=== PATIENT | male | born 1975 | race Caucasian/White ===

== ENCOUNTER 2019-09-15 07:51 | Outpatient (CLI) | payer OTHER, SELFPAY ==
[2019-09-15] MEDS: diphenhydrAMINE 50 mg/mL SDV 1mL 25 MG IVP (08:45)
[2019-09-15] MEDS: acetaminophen 500 mg Tablet 1000 MG PO (08:45)
== END 2019-09-15 07:52 | disposition home or self-care (01) ==
LOC: NSACUTE 07:52
PROVIDERS: Family Provider Family Medicine; PCP Family Medicine; Visit Provider Specialist
DX: G35 Multiple sclerosis (principal)
CPT/HCPCS: 96365; 96374; 96375; 99213; J1200; J2350; J2930; J7040

== ENCOUNTER 2020-02-27 10:23 | Outpatient (CLI) | payer OTHER, SELFPAY ==
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
== END 2020-02-27 10:24 | disposition home or self-care (01) ==
LOC: RAD 10:27
PROVIDERS: PCP Family Medicine; Visit Provider Nurse Practitioner Family
DX: M79.661 Pain in right lower leg (principal); V19.9XXA Pedal cyclist (driver) (passenger) injured in unspecified traffic accident, initial encounter
CPT/HCPCS: 73590

== ENCOUNTER 2020-04-05 08:05 | Outpatient (CLI) | payer OTHER, SELFPAY ==
[2020-04-05] MEDS: diphenhydrAMINE 50 mg/mL SDV 1mL 25 MG IVP (08:00)
[2020-04-05] MEDS: acetaminophen 500 mg Tablet 1000 MG PO (08:50)
== END 2020-04-05 08:06 | disposition home or self-care (01) ==
LOC: NSACUTE 08:06
PROVIDERS: PCP Family Medicine; Visit Provider Specialist
DX: G35 Multiple sclerosis (principal)
CPT/HCPCS: 96365; 96366; 96375; 99213; J1200; J2350; J2930; J7040

== ENCOUNTER 2020-09-27 08:10 | Outpatient (CLI) | payer OTHER, SELFPAY ==
[2020-09-27] MEDS: acetaminophen 500 mg Tablet 1000 MG PO (08:50)
[2020-09-27] MEDS: diphenhydrAMINE 50 mg/mL SDV 1mL 12.5 MG IVP (08:59)
--- NOTE | 2020-09-27 09:51 | PC.NURSE ---
Medication Lot Numbers: Solumedrol [id number] 02/10 Benadryl [id number] 09/09 Ocrevus [id number] 05/10
== END 2020-09-27 08:11 | disposition home or self-care (01) ==
LOC: NSACUTE 08:12
PROVIDERS: PCP Family Medicine; Visit Provider Specialist
DX: G35 Multiple sclerosis (principal)
CPT/HCPCS: 96365; 96366; 96375; 99213; J1200; J2350; J2930; J7040

== ENCOUNTER 2021-03-16 09:00 | Outpatient (CLI) | payer OTHER, SELFPAY | END 2021-03-16 09:01 | disposition home or self-care (01) | LOC: NSACUTE 03-23 10:24 | PROVIDERS: PCP Family Medicine; Visit Provider Specialist | DX: G35 Multiple sclerosis (principal); R42 Dizziness and giddiness; E11.9 Type 2 diabetes mellitus without complications; Z79.84 Long term (current) use of oral hypoglycemic drugs; E66.3 Overweight; Z68.34 Body mass index [BMI] 34.0-34.9, adult | CPT/HCPCS: 99214 ==

== ENCOUNTER 2021-03-16 09:24 | Outpatient (CLI) | payer OTHER, SELFPAY ==
[2021-03-16 09:36] VITALS: BP 110/73; PULSE 65; RESP 18; TEMP 36.4; O2SAT 98
[2021-03-16 10:17] LABS: Basophils # 0.1 10^3/uL (0.0-0.1); Basophils % 0.7 %; Eosinophils # 0.2 10^3/uL (0.0-0.8); Eosinophils % 2.9 %; Hematocrit 48.8 % (42.0-52.0); Hemoglobin 16.8 g/dL (11.7-16.6); Lymphocytes # 1.4 10^3/uL (0.8-4.8); Lymphocytes % 19.7 %; Mean Corpuscular HGB Conc 34.4 g/dL (30.0-36.0); Mean Corpuscular Hemoglobin 30.1 pg (28.0-34.0); Mean Corpuscular Volume 87.3 fl (80-94); Mean Platelet Volume 10.3 fL (7.4-10.4); Monocytes # 0.7 10^3/uL (0.2-0.9); Monocytes % 9.8 %; Neutrophils # 4.89 10^3/uL (1.8-7.7); Neutrophils % 66.8 %; Nucleated Red Blood Cells % 0 %; Platelet Count 219 10^3/cmm (130-400); Red Blood Count 5.59 10^6/uL (4.1-5.3); Red Cell Distribution Width 12.4 % (12.1-15.1); White Blood Count 7.3 10^3/uL (4.0-10.0)
[2021-03-16] MEDS: sodium chloride 0.9% 250 ML 75 ML IV (10:25)
[2021-03-16] MEDS: acetaminophen 500 mg Tablet 1000 MG PO (10:26)
[2021-03-16] MEDS: diphenhydrAMINE 50 mg/mL SDV 1mL 25 MG IV (10:27)
[2021-03-16 10:36] LABS: Estmated Average Glucose 180; Hemoglobin A1C 7.9 % (4.0-6.0)
[2021-03-16 10:44] LABS: Alanine Aminotransferase 108 U/L (0-41); Albumin Level 4.3 g/dL (3.5-5.2); Alkaline Phosphatase 70 IU/L (40-130); Anion Gap 15.9 (5-19); Aspartate Amino Transferase 59 U/L (0-40); Blood Urea Nitrogen 18 mg/dL (6-20); Calcium 9.8 mg/dL (8.5-10.5); Carbon Dioxide 28 mmol/L (22-29); Chloride 97 mmol/L (98-107); Globulin 2.7 g/dL (1.3-4.6); Glucose 191 mg/dL (65-115); Osmolality Calculated 291 mOsm/kg (285-295); Potassium 3.9 mmol/L (3.5-5.1); Sodium 137 mmol/L (136-145); Thyroid Stimulating Hormone 1.69 uIU/mL (0.27-4.20); Total Bilirubin 0.7 mg/dL (0.15-1.2)
[2021-03-16 11:04] VITALS: BP 126/72; PULSE 78; RESP 18; TEMP 36.6; O2SAT 95
[2021-03-16 12:00] VITALS: BP 120/73; PULSE 80; RESP 18; TEMP 36.5; O2SAT 94
[2021-03-16 13:05] VITALS: BP 132/74; PULSE 85; RESP 18; TEMP 36.6; O2SAT 93
== END 2021-03-16 09:25 | disposition home or self-care (01) ==
LOC: ONCMED 09:25
PROVIDERS: PCP Family Medicine; Visit Provider Specialist
DX: G35 Multiple sclerosis (principal); Z79.899 Other long term (current) drug therapy
CPT/HCPCS: 80053; 83036; 84443; 85025; 96365; 96366; 96375; J1200; J2350; J2930; J7040; J7050

== ENCOUNTER 2021-05-09 12:57 | Outpatient (CLI) | payer OTHER, SELFPAY ==
--- NOTE | 2021-05-09 13:30 | USCV_ITS ---
Emeka Costello Age: 45 Gender: M : 1975 Exam Date: 05/09/2021 13:32 Ordering Phys: Stephania Chin MD Technologist: Lanette Monique Exam Location: [facility] Indication: TIA Risk Factors: Previous Vascular Surgery: Right Brachial BP: / Left Brachial BP: / Right Left Velocity (cm/s) Spectral Plaque Velocity (cm/s) Spectral Plaque Syst/Diast Broadening Syst/Diast Broadening 131.70/15.40 Prox CCA 143.80/ 26.00 99.20/ 19.80 Mid CCA 113.10/ 14.50 98.10/ 18.70 Distal CCA 76.90 / 16.20 92.60/ 13.20 Prox ICA 59.00 / 16.20 68.40/ 22.20 Mid ICA 63.20 / 17.10 64.10/ 23.10 Distal ICA 53.00 / 16.20 105.80 ECA 129.00 0.70 ICA/CCA 0.44 Antegrade Vertebral Antegrade 53.00/ 10.90 cm/s 45.30/ 13.70 cm/s Tri Subclavian Tri 132.8 163.2 0 0 CONCLUSIONS Right ICA stenosis <50%. Left ICA stenosis <50%. Normal antegrade Doppler flow noted in the right vertebral artery. Normal antegrade Doppler flow noted in the left vertebral artery. Salazar Cobb MD (Electronically Signed) Final Date: 09 May 2021 17:51 S
== END 2021-05-09 12:58 | disposition home or self-care (01) ==
PROVIDERS: PCP Family Medicine; Visit Provider Specialist
DX: E11.9 Type 2 diabetes mellitus without complications (principal)
CPT/HCPCS: 93880

== ENCOUNTER 2021-09-14 09:03 | Outpatient (CLI) | payer OTHER, SELFPAY ==
[2021-09-14 09:18] VITALS: BP 129/82; PULSE 67; RESP 18; TEMP 36.3; O2SAT 98
[2021-09-14] MEDS: sodium chloride 0.9% 250 ML 50 ML IV (09:41)
[2021-09-14] MEDS: diphenhydrAMINE 50 mg/mL SDV 1mL 25 MG IV (09:42)
[2021-09-14] MEDS: acetaminophen 500 mg Tablet 1000 MG PO (09:42)
[2021-09-14 10:05] VITALS: BP 125/79; PULSE 69; RESP 18; TEMP 36.5; O2SAT 97
[2021-09-14 10:21] VITALS: BP 130/86; PULSE 71; RESP 18; TEMP 36.5; O2SAT 97
[2021-09-14 10:53] VITALS: BP 124/81; PULSE 70; RESP 18; TEMP 36.5; O2SAT 97
[2021-09-14 12:18] VITALS: BP 115/76; PULSE 81; RESP 18; TEMP 36.3; O2SAT 96
== END 2021-09-14 09:04 | disposition home or self-care (01) ==
PROVIDERS: PCP Family Medicine; Referring Provider Specialist; Visit Provider Specialist
DX: G35 Multiple sclerosis (principal)
CPT/HCPCS: 96365; 96366; 96375; J1200; J2350; J2930; J7040; J7050

== ENCOUNTER 2022-03-22 09:37 | Outpatient (CLI) | payer OTHER, SELFPAY ==
[2022-03-22 09:52] VITALS: BP 119/80; PULSE 84; RESP 18; TEMP 36.5; O2SAT 96
[2022-03-22] MEDS: acetaminophen 500 mg Tablet 1000 MG PO (10:14)
[2022-03-22] MEDS: sodium chloride 0.9% 250 ML 50 ML IV (10:14)
[2022-03-22] MEDS: diphenhydrAMINE 50 mg/mL SDV 1mL 25 MG IVP (10:16)
[2022-03-22 10:59] VITALS: BP 114/78; PULSE 76; RESP 18; TEMP 36.6; O2SAT 96
[2022-03-22 11:27] VITALS: BP 115/73; PULSE 83; RESP 18; TEMP 36.4; O2SAT 96
[2022-03-22 12:53] VITALS: BP 129/74; PULSE 81; RESP 18; TEMP 36.5; O2SAT 96
== END 2022-03-22 09:38 | disposition home or self-care (01) ==
LOC: ONCMED 09:38
PROVIDERS: PCP Family Medicine; Visit Provider Specialist
DX: G35 Multiple sclerosis (principal)
CPT/HCPCS: 96365; 96366; 96375; A4222; J1200; J2350; J2930; J7040; J7050

== ENCOUNTER 2022-04-12 12:46 | Outpatient (CLI) | payer OTHER, SELFPAY ==
--- NOTE | 2022-04-12 13:00 | MR_ITS ---
WS: [id number] MRI HEAD WITHOUT CONTRAST TECHNIQUE: Sagittal T1, T2 axial, T2 axial FLAIR, axial and coronal T1 images, axial susceptibility w eighted imaging, axial diffusion weighted images, and coronal T2 images were obtained. CLINICAL INFORMATION: G35 - Multiple sclerosis COMPARISON: MRI 03/27/19 and 2017 FINDINGS: No evidence of restricted diffusion to suggest acute ischemia. Ventricular system and basal cisterns are patent. Mild patchy supratentorial white matter changes appear stable from previous. No evidence of progressed disease. Gadolinium not administered. Mild parenchymal volume loss. No significant T1 h ypointense lesion load. No hemosiderin on susceptibly weighted images. Normal posterior fossa. Normal vascular flow voids at the skull base. Paranasal sinuses are well aerated. Mastoid air cells are well aerated. No significan t atrophy of the corpus callosum. MR/MR head wo con* [id number] IMPRESSION: Gadolinium not administered. 1. Mild patchy supratentorial white matter changes compatible with history of demyelinating disease. No evidence of disease progression. 2. No significant T1 hypointense lesion load. Mild parenchymal volume loss. 3. No significant atrophy of the corpus callosum. 4. No other remarkable findings.
--- NOTE | 2022-04-12 13:45 | MR_ITS ---
WS: [id number] MRI CERVICAL SPINE NONCONTRAST TECHNIQUE: Sagittal T1, T2 and STIR imaging. Axial T2, gradient, and fiesta imaging. CLINICAL INFORMATION: G35 - Multiple sclerosis COMPARISON: None. FINDINGS: Straightening of the normal cervical lordosis. Cord signal is normal. No evidence of cord atrophy. Pr eviously described chronic demyelinating plaques better visualized on the prior examination. Tiny chr onic demyelinating plaque at RIGHT C3 appears unchanged C2-C3: Mild facet arthropathy. Spinal canal and foramen are patent. C3-C4: Mild annular bulging with osteophytic ridging. Mild bilateral bony foraminal narrowing LEFT gr eater than RIGHT. Moderate facet arthropathy. C4-C5: Mild disc bulging and osteophytic ridging. Moderate LEFT bony foraminal narrowing. Moderate fa cet arthropathy. C5-C6: Mild disc bulging with osteophytic ridging. Spinal canal is patent. Moderate facet arthropathy . Mild to moderate LEFT and mild RIGHT bony foraminal narrowing. C6-C7: Mild disc bulging with a tiny annular fissure. Moderate facet arthropathy. Mild LEFT and no si gnificant RIGHT foraminal narrowing. C7-T1: Normal. Visualized brain stem structures: Normal. Prevertebral soft tissues: Normal. MR/MR cervical spin wo con* [id number] IMPRESSION: 1. No evidence of progressed demyelinating disease. 2. Tiny chronic demyelinating plaque at RIGHT C3. 3. No significant cord atrophy. 4. Mild to moderate multilevel bony foraminal narrowing worse at LEFT C4-C5 an d LEFT C5-C6. 5. Mild to moderate facet arthropathy C3-C4 C4-C5 and C5-C6.
== END 2022-04-12 12:47 | disposition home or self-care (01) ==
PROVIDERS: PCP Family Medicine; Visit Provider Specialist
DX: G35 Multiple sclerosis (principal); M47.812 Spondylosis without myelopathy or radiculopathy, cervical region
CPT/HCPCS: 70551; 72141

== ENCOUNTER → 2022-06-27 17:03 | Outpatient (BNVA) | payer OTHER, SELFPAY | PROVIDERS: PCP Family Medicine; Visit Provider Family Medicine | DX: E11.65 Type 2 diabetes mellitus with hyperglycemia (principal); M72.2 Plantar fascial fibromatosis; F32.9 Major depressive disorder, single episode, unspecified; I10 Essential (primary) hypertension; F32.A Depression, unspecified; G35 Multiple sclerosis; J30.9 Allergic rhinitis, unspecified; Z23 Encounter for immunization | CPT/HCPCS: 80053; 80061; 83036; 84153; 84443; 85025 ==

== ENCOUNTER 2022-09-20 08:54 | Oncology outpatient (recurring) (ONCR) | payer OTHER, SELFPAY ==
[2022-09-20 09:15] VITALS: PULSE 80; RESP 18; TEMP 36.4
[2022-09-20] MEDS: acetaminophen 500 mg Tablet 1000 MG PO (09:18)
[2022-09-20] MEDS: sodium chloride 0.9% 250 ML 75 ML IV (09:19)
[2022-09-20] MEDS: ocrelizumab 600 MG in sodium chloride 0.9% 500 ML 100 MG IV (09:57)
[2022-09-20 10:00] VITALS: BP 122/80; PULSE 81; RESP 18; TEMP 36.4
[2022-09-20 10:15] VITALS: BP 116/77; PULSE 81; RESP 18; TEMP 36.3
[2022-09-20 10:35] VITALS: BP 119/82; PULSE 100; RESP 18; TEMP 36.5
[2022-09-20 10:50] VITALS: BP 125/73; PULSE 83; RESP 18; TEMP 36.4
[2022-09-20 12:10] VITALS: BP 126/70; PULSE 91; RESP 18; TEMP 36.7; O2SAT 98
== END 2022-09-20 23:59 | disposition home or self-care (01) ==
PROVIDERS: PCP Family Medicine; Visit Provider Specialist
DX: G35 Multiple sclerosis (principal); Z79.899 Other long term (current) drug therapy
CPT/HCPCS: 96365; 96366; 96375; J2350; J2930; J7040; J7050

== ENCOUNTER → 2023-02-13 16:20 | Outpatient (BNVA) | payer OTHER, SELFPAY | PROVIDERS: PCP Family Medicine; Visit Provider Family Medicine | DX: I10 Essential (primary) hypertension (principal); E11.65 Type 2 diabetes mellitus with hyperglycemia; J30.9 Allergic rhinitis, unspecified | CPT/HCPCS: 80053; 83036; 85025 ==

== ENCOUNTER 2023-03-08 06:33 | Outpatient (CLI) | payer OTHER, SELFPAY ==
--- NOTE | 2023-03-08 06:30 | US_ITS ---
WS: [id number] RIGHT UPPER QUADRANT ULTRASOUND HISTORY: Elevated LFT's COMPARISON: 07/25/2017 Liver: 19.6 cm in length. Enlarged dense liver. Liver measures just slightly greater in size as brigitte red to the study of 07/25/2017. The entire liver is not well visualized. No bile duct dilatation. No ma ss although masses would be difficult to completely exclude. Portal Vein: Normal hepatopetal flow with monophasic waveform. Gallbladder: Normally distended gallbladder with no stones or wall thickening. CBD: 0.3 cm Pancreas: Obscured. Right kidney: 12.9 cm in length. Normal size and echogenicity. No hydronephrosis or mass. Aorta and IVC: Unremarkable abdominal aorta and IVC. No ascites. IMPRESSION: 1. Technically difficult RIGHT upper quadrant ultrasound due to body habitus. 2. Moderate hepatomegaly with severe hepatic steatosis. The entire liver is not well visualized due t o steatosis. 3. Nonvisualized pancreas. 4. Negative gallbladder.
== END 2023-03-08 06:34 | disposition home or self-care (01) ==
LOC: RAD 06:33
PROVIDERS: PCP Family Medicine; Visit Provider Family Medicine
DX: K76.0 Fatty (change of) liver, not elsewhere classified (principal); R16.0 Hepatomegaly, not elsewhere classified; R79.89 Other specified abnormal findings of blood chemistry
CPT/HCPCS: 76705

== ENCOUNTER 2023-03-19 09:59 | Oncology outpatient (recurring) (ONCR) | payer OTHER, SELFPAY ==
[2023-03-19 10:27] VITALS: BP 130/83; PULSE 75; TEMP 36.5; O2SAT 99
[2023-03-19] MEDS: sodium chloride 0.9% 250 ML 75 ML IV (10:51)
[2023-03-19] MEDS: methylPREDNISolone sod succ 125 mg SDV IVP (10:51)
[2023-03-19] MEDS: diphenhydrAMINE 50 mg/mL SDV 1mL 25 MG IVP (10:51)
[2023-03-19] MEDS: acetaminophen 500 mg Tablet 1000 MG PO (10:52)
[2023-03-19] MEDS: ocrelizumab 600 MG in sodium chloride 0.9% 500 ML 100 MG IV (11:29)
[2023-03-19 11:30] VITALS: BP 121/77; PULSE 82; TEMP 36.5; O2SAT 97
[2023-03-19 11:45] VITALS: BP 120/78; PULSE 79; TEMP 36.5; O2SAT 96
[2023-03-19 12:05] VITALS: BP 118/72; PULSE 73; TEMP 36.6; O2SAT 96
[2023-03-19 12:35] VITALS: BP 106/67; PULSE 87; TEMP 36.4; O2SAT 94
[2023-03-19 16:08] VITALS: BP 114/77; PULSE 78; RESP 18; TEMP 36.3; O2SAT 99
== END 2023-03-20 23:59 | disposition home or self-care (01) ==
LOC: ONCMED 10:00
PROVIDERS: PCP Family Medicine; Visit Provider Specialist
DX: G35 Multiple sclerosis (principal)
CPT/HCPCS: 96375; 96413; 96415; J1200; J2350; J2930; J7040; J7050

== ENCOUNTER → 2023-04-06 08:48 | Outpatient (BNVA) | payer OTHER, SELFPAY | PROVIDERS: PCP Family Medicine; Visit Provider Specialist | DX: G35 Multiple sclerosis (principal) | CPT/HCPCS: 99213 ==

== ENCOUNTER → 2023-08-06 16:16 | Outpatient (BNVA) | payer OTHER, SELFPAY | PROVIDERS: PCP Family Medicine; Visit Provider Family Medicine | DX: E11.65 Type 2 diabetes mellitus with hyperglycemia (principal); F32.9 Major depressive disorder, single episode, unspecified; G35 Multiple sclerosis; I10 Essential (primary) hypertension; J30.9 Allergic rhinitis, unspecified; E11.9 Type 2 diabetes mellitus without complications; J44.9 Chronic obstructive pulmonary disease, unspecified | CPT/HCPCS: 80053; 80061; 82607; 83036; 84443; 85025 ==

== ENCOUNTER → 2023-08-13 13:05 | Outpatient (BNVA) | payer OTHER, SELFPAY | PROVIDERS: PCP Family Medicine; Visit Provider Podiatrist Foot & Ankle Surgery | DX: E11.69 Type 2 diabetes mellitus with other specified complication; L84 Corns and callosities; Z79.84 Long term (current) use of oral hypoglycemic drugs | CPT/HCPCS: 99213 ==

== ENCOUNTER 2023-10-17 08:01 | Oncology outpatient (recurring) (ONCR) | payer OTHER, SELFPAY ==
[2023-10-17 08:21] VITALS: BP 122/81; PULSE 79; RESP 16; TEMP 36.6; O2SAT 97
[2023-10-17] MEDS: sodium chloride 0.9% 250 ML 75 ML IV (08:55)
[2023-10-17] MEDS: acetaminophen 500 mg Tablet 1000 MG PO (08:57)
[2023-10-17] MEDS: diphenhydrAMINE 50 mg/mL SDV 1mL 25 MG IVP (08:59)
[2023-10-17] MEDS: methylPREDNISolone sod succ 125 mg/2 mL INJ IVP (09:04)
[2023-10-17] MEDS: ocrelizumab 600 MG in sodium chloride 0.9% 500 ML 100 MG IV (09:12)
[2023-10-17 09:15] VITALS: BP 124/77; PULSE 75; RESP 18; TEMP 36.2; O2SAT 96
[2023-10-17 09:30] VITALS: BP 129/82; PULSE 74; RESP 18; TEMP 36.3; O2SAT 96
[2023-10-17 10:00] VITALS: BP 125/81; PULSE 72; RESP 17; TEMP 36; O2SAT 96
[2023-10-17 11:40] VITALS: BP 117/72; BP 121/78; PULSE 74; PULSE 76; RESP 18; TEMP 35.9; TEMP 36.6; O2SAT 96; O2SAT 98
== END 2023-10-19 23:59 | disposition home or self-care (01) ==
LOC: ONCMED 08:02
PROVIDERS: PCP Family Medicine; Visit Provider Specialist
DX: G35 Multiple sclerosis (principal)
CPT/HCPCS: 96375; 96413; 96415; J1200; J2350; J2919; J7040; J7050

== ENCOUNTER 2024-04-15 09:42 | Oncology outpatient (recurring) (ONCR) | payer OTHER, SELFPAY ==
[2024-04-15] VITALS (7 sets, daily range): BP systolic 113–127; BP diastolic 69–81; PULSE 76–87; RESP 16; TEMP 36.3–37.1; O2SAT 94–98
[2024-04-15] MEDS: acetaminophen 500 mg Tablet 1000 MG PO (10:17)
[2024-04-15] MEDS: sodium chloride 0.9% 250 ML 75 ML IV (10:20)
[2024-04-15] MEDS: diphenhydrAMINE 50 mg/mL SDV 1mL 25 MG IVP (10:23)
[2024-04-15] MEDS: methylPREDNISolone sod succ 125 mg/2 mL INJ IVP (10:28)
[2024-04-15] MEDS: ocrelizumab 600 MG in sodium chloride 0.9% 500 ML 40 MG IV (11:30)
== END 2024-04-19 23:59 | disposition home or self-care (01) ==
PROVIDERS: PCP Family Medicine; Visit Provider Specialist
DX: Z79.899 Other long term (current) drug therapy (principal); G35 Multiple sclerosis
CPT/HCPCS: 96375; 96413; 96415; A4222; J1200; J2350; J2919; J7040; J7050

== ENCOUNTER → 2024-09-18 08:15 | Outpatient (BNVA) | payer OTHER, SELFPAY | PROVIDERS: PCP Family Medicine | DX: E11.9 Type 2 diabetes mellitus without complications (principal) | CPT/HCPCS: 80053; 80061; 81003; 83036; 85025 ==

== ENCOUNTER → 2024-09-19 15:44 | Outpatient (BNVA) | payer OTHER, SELFPAY | PROVIDERS: PCP Family Medicine; Visit Provider Family Medicine | DX: R31.29 Other microscopic hematuria (principal); E11.9 Type 2 diabetes mellitus without complications | CPT/HCPCS: 81003 ==

== ENCOUNTER 2024-10-15 08:32 | Oncology outpatient (recurring) (ONCR) | payer OTHER, SELFPAY ==
--- NOTE | 2024-10-09 08:00 | US_ITS ---
WS: [id number] RIGHT UPPER QUADRANT ULTRASOUND HISTORY: Fatty Liver COMPARISON: 03/08/2023 Liver: 18.4 cm in length. Mildly enlarged liver with severe coarse echotexture. Loss of normal signal to the deep liver due to attenuation in hepatic steatosis. No mass identified. Areas of focal fatty sparing adjacent to the gallbladder. The entire liver is not well imaged. Portal Vein: Normal hepatopetal flow with monophasic waveform. Gallbladder: Normally distended gallbladder with no stones or wall thickening. CBD: 0.3 cm Pancreas: Normal size and echogenicity. Right kidney: 11.4 cm in length. Normal size and echogenicity. No hydronephrosis or mass. Aorta and IVC: Limited. No ascites. US/US liver [id number] IMPRESSION: 1. Technically limited and difficult RIGHT upper quadrant ultrasound due to uma dy habitus. 2. Mild hepatomegaly with advanced hepatic steatosis. 3. Negative gallbladder.
[2024-10-15] MEDS: sodium chloride 0.9% 250 ML 75 ML IV (10:01)
[2024-10-15] MEDS: diphenhydrAMINE 50 mg/mL SDV 1mL 25 MG IVP (10:04)
[2024-10-15] MEDS: acetaminophen 500 mg Tablet 1000 MG PO (10:04)
[2024-10-15] MEDS: methylPREDNISolone sod succ 125 mg/2 mL INJ IVP (10:05)
[2024-10-15 10:30] VITALS: BP 120/77; PULSE 76; RESP 16; O2SAT 95
[2024-10-15] MEDS: ocrelizumab 600 MG in sodium chloride 0.9% 500 ML 100 MG IV (10:31)
[2024-10-15 10:49] VITALS: BP 127/84; PULSE 76; RESP 16; TEMP 36.1; O2SAT 97
[2024-10-15 11:05] VITALS: BP 118/75; PULSE 76; RESP 16; O2SAT 95
[2024-10-15 11:35] VITALS: BP 121/78; PULSE 84; RESP 16; TEMP 36.1; O2SAT 95
[2024-10-15 13:06] VITALS: BP 133/86; PULSE 82; RESP 16; TEMP 36.8; O2SAT 98
== END 2024-10-18 23:59 | disposition home or self-care (01) ==
PROVIDERS: PCP Family Medicine; Visit Provider Specialist
DX: Z53.9 Procedure and treatment not carried out, unspecified reason; G35 Multiple sclerosis; Z79.899 Other long term (current) drug therapy
CPT/HCPCS: 76705; 96375; 96413; 96415; J1200; J2350; J2919; J7040; J7050; J9999

== ENCOUNTER → 2025-03-13 11:26 | Outpatient (BNVA) | payer OTHER, SELFPAY | PROVIDERS: PCP Family Medicine; Visit Provider Family Medicine | DX: E11.9 Type 2 diabetes mellitus without complications (principal) | CPT/HCPCS: 80053; 82043; 83036 ==

== ENCOUNTER 2025-04-14 08:02 | Oncology outpatient (recurring) (ONCR) | payer OTHER, SELFPAY ==
[2025-04-14] MEDS: diphenhydrAMINE 50 mg/mL SDV 1mL 25 MG IVP (08:44)
[2025-04-14] MEDS: methylPREDNISolone sod succ 125 mg/2 mL INJ IVP (08:46)
[2025-04-14 09:20] LABS: Hepatitis B Surface Antigen Non-Reactive (Nonreactive)
[2025-04-14 09:22] VITALS: BP 100/66; PULSE 85; RESP 16; TEMP 36.4; O2SAT 96
[2025-04-14 09:40] VITALS: BP 107/63; PULSE 82; RESP 16; TEMP 36.4; O2SAT 95
[2025-04-14 09:55] VITALS: BP 109/75; PULSE 90; RESP 16; TEMP 36.6; O2SAT 96
[2025-04-14 11:43] VITALS: BP 117/77; PULSE 90; RESP 16; TEMP 36.7; O2SAT 95
== END 2025-04-19 23:59 | disposition home or self-care (01) ==
PROVIDERS: PCP Family Medicine; Visit Provider Specialist
DX: G35.D Multiple sclerosis, unspecified (principal); Z79.899 Other long term (current) drug therapy
CPT/HCPCS: 86705; 86706; 87340; 96375; 96413; 96415; J1200; J2350; J2919; J7040; J7050; J9999

== ENCOUNTER 2025-04-18 01:23 | Emergency (ER) | payer OTHER, SELFPAY ==
--- OUTSIDE RECORDS SUMMARY | 2025-04-18 01:28 | XMS_ITS | Encounter Summary ---
Author Organization [facility] Address [address] [place] [address] Care Team Providers Care Political Science Research Assistant Name Role Phone Damon Garcia MD Primary Care Provider +1- [phone] Encounter Details Date Type Department Care Team (Latest Contact Info) Description 02/07/2006 Outpatient Historical [facility] [place] [address] [place] [address] Damon Garcia MD [address] [place] [address] Elev Transaminase/Ldh (Primary Dx) Social History Tobacco Use Types Packs/Day Years Used Date Smoking Tobacco: Never Assessed Sex and Gender Information Value Date Recorded Sex Assigned at Not on file 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
--- OUTSIDE RECORDS SUMMARY | 2025-04-18 01:28 | XMS_ITS | Encounter Summary ---
Author Organization [facility] Address [address] 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 Gender Identity Not on file Sexual Orientation Not on file documented as of this encounter Plan of Treatment Not on file documented as of this encounter Procedures Procedure Name Priority Date/Time Associated Diagnosis Comments ACUTE HEPATITIS PANEL Routine 02/07/2006 4:22 PM CDT documented in this encounter Results * ACUTE HEPATITIS PANEL (02/07/2006 4:22 PM CDT) HEPATITIS B SURFACE AG Negative Negative INTERFACE SYSTEM HEPATITIS B CORE IGM Negative Negative INTERFACE SYSTEM HEPATITIS A IGM Negative Negative INTE RFACE SYSTEM HEPATITIS C AB Negative Negative INTER FACE SYSTEM Comment: HCV antibody testing is performed by E.I.A. methodology. CDC recommends positive HCV antibody tests have confirmation testing. Low positive results should be confirmed with RIBA. This will determine if results are false positive. If a high positive result is obtained an HCV RNA may be run. The RNA test confirms infection and the level of the RNA, to some extent, helps guide treatment. The same specimen can be used for RIBA and will be held for 7 days. Please contact the Immunology lab if RIBA testing is desired. However, if HCV RNA testing is desired, a new specimen must be collected. Blood should be collected in SST (serum) or EDTA (plasma) separation tubes. Separate serum or plasma from whole blood within 6 hours of collection. Serum or plasma can be transported at refrigerated temperature or frozen and transported. 02/07/2006 4:22 PM CDT us Damon Garcia MD CHEMISTRY ORDERABLES Final Result INTERFACE SYSTEM Refer to clinic/hospital department documented in this encounter Visit Diagnoses Not on filedocumented in this encounter Care Teams Lobby Attendant Relationship Specialty Start Date End Date Damon Garcia MD [address] [id number] PCP - General 09/24/02 documented as of this encounter
--- OUTSIDE RECORDS SUMMARY | 2025-04-18 01:29 | XMS_ITS | Encounter Summary ---
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
--- OUTSIDE RECORDS SUMMARY | 2025-04-18 01:29 | XMS_ITS | Encounter Summary ---
Author Organization [facility] Address [address] [place] [address] Care Team Providers Care Blacksmith Apprentice Name Role Phone Damon Garcia MD Primary Care Provider [phone]- [phone] Encounter Details Date Type Department Care Team (Latest Contact Info) Description 10/06/2002 Outpatient Historical [facility] [place] [place] [address] Damon Garcia MD [address] [place] [address] Routine medical exam (Primary Dx) Social History Tobacco Use Types Packs/Day Years Used Date Smoking Tobacco: Never Assessed Sex and Gender Information Value Date Recorded Sex Assigned at Not on file 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
--- OUTSIDE RECORDS SUMMARY | 2025-04-18 01:29 | XMS_ITS | Encounter Summary ---
Author Organization [facility] Address [address] [place] [address] Care Team Providers Care First Coat Sander Name Role Phone Damon Garcia MD Primary Care Provider +1- [phone] Encounter Details Date Type Department Care Team (Latest Contact Info) Description 06/20/2006 Outpatient Historical [facility] [place] [place] [address] Damon Garcia MD [address] [place] [address] Elev Transaminase/Ldh (Primary Dx); Subarachnoid Hemorrhage (CMS/HCC); Unspecified Peripheral Vascular Disease; Need for Prophylactic Vaccination with Tetanus-Diphtheria (TD) Social History Tobacco Use Types Packs/Day Years Used Date Smoking Tobacco: Never Assessed Sex and Gender Information Value Date Recorded Sex Assigned at Not on file 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 Gender Identity Not on file Sexual Orientation Not on file documented as of this encounter Plan of Treatment Not on file documented as of this encounter Visit Diagnoses Diagnosis Nonspecific elevation of levels of transaminase or lactic acid dehydrogenase (LDH)- Primary Subarachnoid hemorrhage (CMS/HCC) Subarachnoid hemorrhage Peripheral vascular disease, unspecified Need for prophylactic vaccination with tetanus-diphtheria (Td) documented in this encounter Care Teams First Coat Sander Relationship Specialty Start Date End Date Damon Garcia MD [address] [place] [address] PCP - General 09/24/02 documented as of this encounter
--- OUTSIDE RECORDS SUMMARY | 2025-04-18 01:29 | XMS_ITS | Encounter Summary ---
Author Organization [facility] Address [address] [place] [address] Care Team Providers Care Patient Accounts Manager Name Role Phone Damon Garcia MD Primary Care Provider [phone]- [phone] Encounter Details Date Type Department Care Team (Latest Contact Info) Description 10/06/2003 Outpatient Historical [facility] Nose [facility] Th[facility] 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 Gender Identity Not on file Sexual Orientation Not on file documented as of this encounter Plan of Treatment Not on file documented as of this encounter Visit Diagnoses Diagnosis Dysfunct eustachian tube- Primary Dysfunction of Eustachian tube Hypertrph nasal turbinat Hypertrophy of nasal turbinates Deviated nasal septum Hypertrophy tonsils Hypertrophy of tonsils alone documented in this encounter Care Teams Patient Accounts Manager Relationship Specialty Start Date End Date Damon Garcia MD [address] [facility] [address] [place] [address] PCP - General 09/24/02 documented as of this encounter
--- OUTSIDE RECORDS SUMMARY | 2025-04-18 01:29 | XMS_ITS | Encounter Summary ---
Author Organization [facility] Address [address] [place] [address] Care Team Providers Care Mastic Floor Layer Name Role Phone Damon Garcia MD Primary Care Provider +1- [phone] Encounter Details Date Type Department Care Team (Latest Contact Info) Description 05/28/2003 Outpatient Historical [facility] [place] [place] [address] Damon Garcia MD [address] [place] [address] OTITIS MEDIA NOS (Primary Dx); ACUTE SINUSITIS NOS Social History Tobacco Use Types Packs/Day Years Used Date Smoking Tobacco: Never Assessed Sex and Gender Information Value Date Recorded Sex Assigned at Not on file 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
--- OUTSIDE RECORDS SUMMARY | 2025-04-18 01:29 | XMS_ITS | Encounter Summary ---
Author Organization [facility] Address [address] [place] [address] Care Team Providers Care Computational Physicist Name Role Phone Damon Garcia MD Primary Care Provider +1- [phone] Encounter Details Date Type Department Care Team (Latest Contact Info) Description 09/24/2002 Outpatient Historical [facility]- [place] 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
--- OUTSIDE RECORDS SUMMARY | 2025-04-18 01:29 | XMS_ITS | Encounter Summary ---
Author Organization [facility] Address [address] [place] [address] Care Team Providers Care Director Of Diagnostic Imaging Name Role Phone Damon Garcia MD Primary Care Provider +1- [phone] Encounter Details Date Type Department Care Team (Latest Contact Info) Description 09/24/2002 Outpatient Historical 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
--- OUTSIDE RECORDS SUMMARY | 2025-04-18 01:29 | XMS_ITS | Encounter Summary ---
Author Organization [facility] Address [address] [place] [address] Care Team Providers Care Long Term Acute Care Registered Nurse Name Role Phone Damon Garcia MD Primary Care Provider +1- [phone] Encounter Details Date Type Department Care Team (Latest Contact Info) Description 06/22/2003 Outpatient Historical [facility] [place] [place] [address] Damon Garcia MD [address] [place] [address] ACUTE URI NOS (Primary Dx) Social History Tobacco Use Types Packs/Day Years Used Date Smoking Tobacco: Never Assessed Sex and Gender Information Value Date Recorded Sex Assigned at Not on file 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
--- OUTSIDE RECORDS SUMMARY | 2025-04-18 01:29 | XMS_ITS | Encounter Summary ---
Author Organization [facility] Address [address] [place] [address] Care Team Providers Care Lead Portfolio Manager Name Role Phone Damon Garcia MD Primary Care Provider +1- [phone] Encounter Details Date Type Department Care Team (Latest Contact Info) Description 01/24/2006 Outpatient Historical [facility] [place] [address] [place] [address] Damon Garcia MD [address] [place] [address] Unspecified Sleep Apnea (Primary Dx); Unspecified Esophagitis; Elevated Blood Pressure Reading without Diagnosis of Hypertension; Obesity, Unspecified Social History Tobacco Use Types Packs/Day Years Used Date Smoking Tobacco: Never Assessed Sex and Gender Information Value Date Recorded Sex Assigned at Not on file 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
--- OUTSIDE RECORDS SUMMARY | 2025-04-18 01:29 | XMS_ITS | Encounter Summary ---
Author Organization [facility] Address [address] [place] [address] Care Team Providers Care Flight Attendant Inflight Services Name Role Phone Damon Garcia MD Primary Care Provider +1- [phone] Encounter Details Date Type Department Care Team (Latest Contact Info) Description 10/20/2002 Outpatient Historical [facility] [place] [address] [place] [address] Carlito Hay MD [address] [place] [address] OTALGIA NOS (Primary Dx); ALLERGIC RHINITIS NOS Social History Tobacco Use Types Packs/Day Years Used Date Smoking Tobacco: Never Assessed Sex and Gender Information Value Date Recorded Sex Assigned at Not on file 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
--- OUTSIDE RECORDS SUMMARY | 2025-04-18 01:29 | XMS_ITS | Encounter Summary ---
Author Organization [facility] Address [address] [place] [address] Care Team Providers Care Operations Controller Name Role Phone Damon Garcia MD Primary Care Provider +1- [phone] Encounter Details Date Type Department Care Team (Latest Contact Info) Description 09/29/2002 Outpatient Historical [facility] [place] [address] [place] [address] Damon Garcia MD [address] [place] [address] ACUTE SINUSITIS NOS (Primary Dx) Social History Tobacco Use Types Packs/Day Years Used Date Smoking Tobacco: Never Assessed Sex and Gender Information Value Date Recorded Sex Assigned at Not on file 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
--- OUTSIDE RECORDS SUMMARY | 2025-04-18 01:29 | XMS_ITS | Clinical Summary ---
Author Organization [facility] Address [address] 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 Gender Identity Not on file Sexual Orientation Not on file Plan of Treatment Health Maintenance Due Date Last Done Comments Pre-Diabetes and Diabetes Screening 1975 HEPATITIS B VACCINES (1 of 3 - 19+ 3-dose series) 08/1994 DTAP/TDAP/TD VACCINES (1 - Tdap) 06/21/2006 06/20/19 07 COLORECTAL SCREENING 11/21/2020 Colorectal Cancer Screening 11/21/2020 FIT-DNA Q 3 years 11/21/2020 FIT/FOBT Q 1 year 11/21/2020 Flex Sig/CT Colonography Q 5 years 11/21/2020 INFLUENZA VACCINE (#1) 2024 Insurance [facility] PPO Care Teams Airline Attendant Relationship Specialty Start Date End Date Damon Garcia MD [address] [phone] PCP - General 09/24/02
--- OUTSIDE RECORDS SUMMARY | 2025-04-18 01:29 | XMS_ITS | Encounter Summary ---
Author Organization [facility] Address [address] [place] [address] Care Team Providers Care Logistics Tech Name Role Phone Damon Garcia MD Primary Care Provider +1- [phone] Encounter Details Date Type Department Care Team (Latest Contact Info) Description 07/06/2003 Outpatient Historical [facility] N[facility] Th[facility]at [address] 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
--- OUTSIDE RECORDS SUMMARY | 2025-04-18 01:29 | XMS_ITS | Encounter Summary ---
Author Organization [facility] Address [address] [place] [address] Care Team Providers Care Building Custodial Supervisor Name Role Phone Damon Garcia MD Primary Care Provider +1- [phone] Encounter Details Date Type Department Care Team (Latest Contact Info) Description 10/06/2005 Outpatient Historical [facility] Ear, Nose and Throat 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
--- OUTSIDE RECORDS SUMMARY | 2025-04-18 01:29 | XMS_ITS | Encounter Summary ---
Author Organization [facility] Address [address] [place] [address] Care Team Providers Care Plumber Cub Name Role Phone Damon Garcia MD Primary Care Provider +1- [phone] Encounter Details Date Type Department Care Team (Latest Contact Info) Description 09/02/2002 Outpatient Historical [facility] [place] [place] [address] aDmon Garcia MD [address] [place] [address] OTALGIA NOS (Primary Dx); ABDOMINAL PAIN EPIGASTRIC Social History Tobacco Use Types Packs/Day Years Used Date Smoking Tobacco: Never Assessed Sex and Gender Information Value Date Recorded Sex Assigned at Not on file 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
--- OUTSIDE RECORDS SUMMARY | 2025-04-18 01:29 | XMS_ITS | Clinical Summary ---
Author Organization [facility] Address [address] Merchant: Epic Prelude ADT DONNIE MARTINEZ [address] Care Team Providers Care Legal Executive Assistant Name Role Phone Damon Garcia MD Primary Care Provider +1- [phone] Allergies No known active allergies Medications OneTouch Ultra Test Strip test four times daily 5 Active buPROPion HCL (WELLBUTRIN XL) 300 mg Extended Release 24 hour tablet Take 300 mg by mouth daily in the morning. 5 Active gabapentin (NEURONTIN) 300 mg capsule Take 1 Capsule by mouth 3 times daily. 5 Active metFORMIN (GLUCOPHAGE) 1,000 mg tablet Take 1 Tablet by mouth 2 times daily. 5 Active Metoprolol-Hyd rochlorothiazi de 50-25 mg tablet Take 1 Tablet by mouth daily. 5 Active montelukast (SINGULAIR) 10 mg tablet Take 1 Tablet by mouth daily. 5 Active Mounjaro 12.5 mg/0.5 mL Pen Injector inject 12.5mg SUBCUTANEOUSLY ONCE weekly 5 Active venlafaxine (EFFEXOR XR) 75 mg Extended Release 24 hour capsule Take 1 Capsule by mouth daily. 5 Active atorvastatin calcium (ATORVASTATIN ORAL) Take by mouth. Activ e ocrelizumab (OCREVUS IV) Inject by intravenous injection. Active Active Problems Problem Noted Date Diagnosed Date Metabolic dysfunction-associ ated steatotic liver disease (MASLD) 02/25/2025 Encounters Date Type Department Care Team Description 04/07/2025 External Device Data ST[facility] ABSTRACTION Provider, Abstract 03/24/2025 External Device Data ST[facility] ABSTRACTION Provider, Abstract 03/03/2025 External Device Data ST[facility] ABSTRACTION Provider, Abstract 03/03/2025 External Device Data STL ABSTRACTION Provider, Abstract 03/03/2025 External Device Data ST[facility] ABSTRACTION Provider, Abstract 02/25/2025 7:30 AM CDT Video Visit [facility] Gastroenterology- [place] [address] [place] [phone] Ruby Box DO Metabolic dysfunction-associa brown steatotic liver disease (MASLD) (Primary Dx) from Last 3 Months Immunizations Immunization Administration Dates Next Due (TDVAX)(7 YRS UP) TETANUS AN D DIPHTHERIA TOXOIDS, ADSORBED (2 LF OF TETANUS TOXOID AND 2 LF OF DIPHTHERIA TOXOID), 0.5ML (PF), IM 06/20/2006 Family History Medical History Relation Name Comments CIRRHOSIS Father Colon Cancer Father Relation Name Status Comments Father Alive Social History Tobacco Use Types Packs/Day Years Used Date Smoking Tobacco: Never Assessed Sex and Gender Information Value Date Recorded Sex Assigned at Not on file 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 Gender Identity Not on file Sexual Orientation Not on file Last Filed Vital Signs Vital Sign Reading Time Taken Comments Blood Pressure 126/74 04/05/2021 4:55 PM TRADESHOW WORKER Pulse 80 04/05/2021 4:55 PM TRADESHOW WORKER Temperature 37.1 C (98.7 F) 04/05/2021 4:55 PM TRADESHOW WORKER Respiratory Rate 18 04/05/2021 4:55 PM TRADESHOW WORKER Oxygen Saturation 96% 04/05/2021 4:55 PM TRADESHOW WORKER Inhaled Oxygen Concentration - - Weight 108.9 kg (240 lb) 02/25/2025 7:22 AM CDT Height 188 cm (6' 2 ) 02/25/2025 7:22 AM CDT Body Mass Index 30.81 02/25/2025 7:22 AM CDT Plan of Treatment Upcoming Encounters Date Type Department Care Team (Late st Contact Info) Description 05/19/2025 10:00 AM TRADESHOW WORKER Appointment [facility] Ultrasound [address] [place] [phone] Ruby Box DO [address] [place] [address] 08/27/2025 9:00 AM CDT Office Visit [facility] Gastroenterology- [place] [address] [place] [address] CarlinJhon, ULISSES [address] [facility] [address] [place] [address] Health Maintenance Due Date Last Done Comments Pre-Diabetes and Diabetes Screening 1975 HEPATITIS B VACCINES (1 of 3 - 19+ 3-dose series) 08/1994 DTAP/TDAP/TD VACCINES (1 - Tdap) 06/21/2006 06/20/19 07 COLORECTAL SCREENING 11/21/2020 Colorectal Cancer Screening 11/21/2020 FIT-DNA Q 3 years 11/21/2020 FIT/FOBT Q 1 year 11/21/2020 Flex Sig/CT Colonography Q 5 years 11/21/2020 Preventative Visit- Commercial 05/21/2024 INFLUENZA VACCINE (#1) 2024 COVID-19 Vaccine (2 - 2024- season) 2025 Insurance [facility] Care Teams Legal Executive Assistant Relationship Specialty Start Date End Date Damon Garcia MD [address] [address] [place] [phone] [facility] - General 09/24/02
--- OUTSIDE RECORDS SUMMARY | 2025-04-18 01:29 | XMS_ITS | Encounter Summary ---
Author Organization [facility] Address [address] [place] [address] Care Team Providers Care Office Technology Instructor Name Role Phone Damon Garcia MD Primary Care Provider +1- [phone] Encounter Details Date Type Department Care Team (Latest Contact Info) Description 05/12/2003 Outpatient Historical [facility] [place] [address] [place] [address] Damon Garcia MD [address] [place] [address] OTITIS MEDIA NOS (Primary Dx); ACUTE SINUSITIS NOS Social History Tobacco Use Types Packs/Day Years Used Date Smoking Tobacco: Never Assessed Sex and Gender Information Value Date Recorded Sex Assigned at Not on file 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
--- OUTSIDE RECORDS SUMMARY | 2025-04-18 01:29 | XMS_ITS | Encounter Summary ---
Author Organization [facility] Address [address] [place] [address] Care Team Providers Care Java Software Engineer Name Role Phone Damon Garcia MD Primary Care Provider [phone]- [phone] Encounter Details Date Type Department Care Team (Latest Contact Info) Description 09/01/2005 Outpatient Historical [facility] Ear, Nose and Throat [address] [place] 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
[2025-04-18 01:38] VITALS: BP 141/80; PULSE 83; RESP 16; O2SAT 96; BMI 30.8
--- NOTE | 2025-04-18 02:17 | W.ED.RECABL ---
HPI - Recheck/Abnormal Lab/Rx General: Chief Complaint: Recheck/Abnormal Lab/Rx Stated Complaint: Sugar high 485 Time Seen by Provider: 04/18/25 01:50 History of Present Illness: Patient is a 49-year-old male with a history of multiple sclerosis and type 2 diabetes who presents with significantly elevated blood glucose levels. Patient received MS treatment with Ocrevus on Sunday (4 days ago) along with 120 mg of dexamethasone. His blood glucose at home was measured at 485 mg/dL and was 467 mg/dL at the time of presentation. The patient reports that his blood glucose has never been this high before, with previous highest reading being around 350 mg/dL. He has been feeling unwell for the past few days since the treatment. He reports feeling jittery, particularly at night, and has been having trouble sleeping, which he attributes to the steroids. He took Benadryl approximately one hour prior to presentation to help with sleep. Patient reports having some diarrhea which he attributes to Mounjaro. He denies vomiting or excessive diarrhea. His morning blood glucose readings had been trending upward but were not over 200 mg/dL (approximately 190 mg/dL) prior to this episode. Related Data Home Medications ?Medication ?Instructions ?Recorded ?Confirmed fluticasone propionate 50 1 spray intranasal DAILY 09/15/19 03/17/25 mcg/actuation nasal spray,suspension (Flonase Allergy Relief) ibuprofen 200 mg capsule 200 mg PO Q6H PRN 09/15/19 03/17/25 Previous Rx's ?Medication ?Instructions ?Recorded albuterol sulfate 90 mcg/actuation 1 inh inhalation QID #8.5 grams 08/06/23 aerosol inhaler (ProAir HFA) diabetic shoes with 3 inserts #1 ea 08/13/23 ocrelizumab 30 mg/mL intravenous 600 mg (20 mL) IV .EVERY 6 MONTHS 03/18/24 solution (Ocrevus) #20 mL blood-glucose meter ([employer] Data SolutionsTouch #1 ea 05/27/24 Ultra2 Meter) bupropion HCl 300 mg 24 hr tablet, See Rx Instructions .Route 05/27/24 extended release .COMPLEX #90 tabs metformin 1,000 mg tablet 1,000 mg PO BID #180 tabs 05/27/24 metoprolol tartrate 50 1 tab PO DAILY 90 days #90 tabs 05/27/24 mg-hydrochlorothiazide 25 mg tablet montelukast 10 mg tablet See Rx Instructions .Route 05/27/24 .COMPLEX #90 tabs venlafaxine 75 mg capsule,extended See Rx Instructions .Route 05/27/24 release 24 hr .COMPLEX #90 caps 5514 custom insoles #1 ea 07/03/24 diabetic shoes with 3 inserts #1 ea 07/03/24 gabapentin 300 mg capsule See Rx Instructions .Route 08/21/24 .COMPLEX #300 caps blood sugar diagnostic (OneTouch See Rx Instructions .Route 12/03/24 Ultra Test strips) .COMPLEX #150 strips atorvastatin 20 mg tablet See Rx Instructions .Route 03/12/25 .COMPLEX #90 tabs tirzepatide 15 mg/0.5 mL 15 mg (0.5 mL) SUBCUT .weekly 03/14/25 subcutaneous pen injector days #6 mL insulin lispro 100 unit/mL See Rx Instructions .Route 04/18/25 subcutaneous half-unit pen .COMPLEX #15 mL Allergies Allergy/AdvReac Type Severity Reaction Status Date / Time No Known Allergies Allergy Verified 03/17/25 08:11 Review of Systems Narrative: Constitutional: Reports not feeling well for the past few days Gastrointestinal: Reports mild diarrhea attributed to Mounjaro Neurological: Reports feeling jittery, particularly at night Sleep: Reports difficulty sleeping PFSH ED PFSH: Medical History Paresthesia Low back pain Claustrophobia Nontraumatic rupture of left rotator cuff Type 2 diabetes mellitus without complication, without long-term current use of insulin Recurrent major depressive disorder, in partial remission Multiple sclerosis Depression Obesity (BMI 30-39.9) Hyperlipidemia Surgical History History of umbilical hernia repair 2014 Family History Grandfather Heart disease Father Diabetes Mother Diabetes Grandfather Parkinson disease Other Colon cancer Social History Smoking and tobacco/nicotine status: never used tobacco/nicotine Alcohol intake: never Substance/Drug Use: never Physical Exam Const: COMMON NORMALS: no acute distress GENERAL APPEARANCE: cooperative; not ill appearing and not frail appearing HENMT: COMMON NORMALS: normocephalic, atraumatic and Normal external nose present HEAD & SCALP: normocephalic and atraumatic FACE & SINUS: normal facial exam and face symmetric NOSE: Normal external nose present Eye: COMMON NORMALS: Equal, round and reactive pupils present and EOMs intact bilaterally PUPIL: Yes Equal, round and reactive pupils present Neck/C-Spine: GENERAL: Yes trachea midline Chest: CHEST: Yes Symmetrical chest wall rise Resp: COMMON NORMALS: normal respiratory effort, No retractions, No use of accessory muscles and clear to auscultation bilaterally AUSCULTATION: clear to auscultation bilaterally Cardio: COMMON NORMALS: regular rate and regular rhythm RATE: regular rate RHYTHM: regular rhythm GI: COMMON NORMALS: Normal to inspection, nondistended, normoactive bowel sounds present Extremity: COMMON NORMALS: no pedal edema Neuro: RENA COMA SCALE: document GCS findings Rena coma scale eye opening: Spontaneous Rena coma scale verbal response: Orientated Rena coma scale motor response: [place] commands [place] coma scale total score: 15 SENSORY EXAM: Yes extremities (intact) Psych: COMMON NORMALS: speech normal SPEECH: Yes normal speech Skin: COMMON NORMALS: no rashes or lesions noted GENERAL SKIN EXAM: no rashes or lesions noted Course Vital Signs: Vital signs: Vital Signs Pulse Rate 78 04/18/25 05:00 Respiratory Rate 16 04/18/25 01:38 Blood Pressure 122/77 04/18/25 05:00 Pulse Oximetry 96 04/18/25 05:00 Oxygen Delivery Me thod Room Air, Nasal C annula 04/18/25 01:38 MDM - Recheck/Abnormal Lab/Rx Medical Decision Making 49-year-old type II diabetic who had 120 mg of Dexamethasone a few days ago treatment of MS. Serum sugar is 514. His vitals, however, are normal. He is not ketotic or acidotic. There is no anion gap. Lipase is mildly elevated at 80. ALT mildly elevated at 69. His CBC was normal. HCO3 was 26. Sodium was 132 representing pseudohyponatremia due to sugar being high. He received 15 U insulin with 2 L of fluid bolus. Sugars down to the mid 200s on repeat accu chek. He will be prescribed was pro insulin with sliding scale written out for him to control her sugars for the next few days. This is likely steroid induced hyperglycemia . He will follow up with his physician next week. Lab Data 04/18/25 02:20 04/18/25 02:20 Laboratory Results WBC 7.97 10^3/uL (3.29-11.43) 04/18/25 02:20 Corrected WBC Cancelled 04/18/25 01:51 RBC 4.98 10^6/uL (3.85-5.65) 04/18/25 02:20 Hgb 15.10 g/dL (11.27-16.99) 04/18/25 02:20 Hct 42.2 % (37-53) 04/18/25 02:20 MCV 84.7 fl (82-101) 04/18/25 02:20 MCH 30.3 pg (27-33) 04/18/25 02:20 MCHC 35.8 g/dL (30-55) 04/18/25 02:20 RDW 12.1 % (12.1-15.1) 04/18/25 02:20 Plt Count 257 10^3/cmm (157-399) 04/18/25 02:20 MPV 10.0 fL (7.4-10.4) 04/18/25 02:20 Gran % Cancelled 04/18/25 01:51 Neut % (Auto) 56.8 % 04/18/25 02:20 Lymph % (Auto) 29.1 % 04/18/25 02:20 [place] % (Auto) 9.7 % 04/18/25 02:20 Eos % (Auto) 3.4 % 04/18/25 02:20 Baso % (Auto) 0.6 % 04/18/25 02:20 Neut # (Auto) 4.53 10^3/uL (1.8-7.7) 04/18/25 02:20 Lymph # (Auto) 2.3 10^3/uL (0.8-4.8) 04/18/25 02:20 [place] # (Auto) 0.8 10^3/uL (0.2-0.9) 04/18/25 02:20 Eos # (Auto) 0.3 10^3/uL (0.0-0.8) 04/18/25 02:20 Baso # (Auto) 0.1 10^3/uL (0.0-0.1) 04/18/25 02:20 Absolute Gran (auto) Cancelled 04/18/25 01:51 Nucleated RBC % (auto) 0 % 04/18/25 02:20 Nucleated RBCs # 0.0 /100WBC 04/18/25 02:20 Sodium 132 mmol/L (136-145) L 04/18/25 02:20 Potassium 4.0 mmol/L (3.5-5.1) 04/18/25 02:20 Chloride 95 mmol/L (98-107) L 04/18/25 02:20 Carbon Dioxide 26 mmol/L (22-29) 04/18/25 02:20 Anion Gap 15.0 (5-19) 04/18/25 02:20 BUN 20 mg/dL (6-20) 04/18/25 02:20 Creatinine 0.7 mg/dL (0.7-1.2) 04/18/25 02:20 GFR Calculation 119.9 mL/min (90-130) 04/18/25 02:20 Glucose 514 mg/dL (65-115) H* 04/18/25 02:20 POC Glucose 278 mg/dL (70-110) H 04/18/25 04:01 Calculated Osmolality 300 mOsm/kg (285-295) H 04/18/25 02:20 Calcium 9.8 mg/dL (8.5-10.5) 04/18/25 02:20 Magnesium 1.8 mg/dL (1.7-2.3) 04/18/25 02:20 Total Bilirubin 0.5 mg/dL (0.15-1.2) 04/18/25 02:20 AST 27 U/L (0-40) 04/18/25 02:20 ALT 69 U/L (0-41) H 04/18/25 02:20 Alkaline Phosphatase 145 U/L (40-130) H 04/18/25 02:20 Total Protein 7.0 g/dL (6.6-8.7) 04/18/25 02:20 Albumin 4.4 g/dL (3.5-5.2) 04/18/25 02:20 Globulin 2.6 g/dL (1.3-4.6) 04/18/25 02:20 Lipase 80 U/L (13-60) H 04/18/25 02:20 Urine Color Yellow (Yellow) 04/18/25 02:22 Urine Appearance Clear (CLEAR) 04/18/25 02:22 Urine pH 6.0 (5-7) 04/18/25 02:22 Ur Specific [place] 1.032 (1.005-1.030) H 04/18/25 02:22 Urine Protein Negative (Negative) 04/18/25 02:22 Urine Glucose (UA) 3+ (Normal) H 04/18/25 02:22 Urine Ketones Negative (Negative) 04/18/25 02:22 Urine Blood Negative (Negative) 04/18/25 02:22 Urine Nitrate Negative (Negative) 04/18/25 02:22 Urine Bilirubin Negative (Negative) 04/18/25 02:22 Urine Urobilinogen 1.0 mg/dL (Negative) 04/18/25 02:22 Ur Leukocyte Esterase Negative (Negative) 04/18/25 02:22 Urine RBC 0-2 /hpf (0-2) 04/18/25 02:22 Urine WBC 0-5 /hpf (0-5) 04/18/25 02:22 Ur Squamous Epith Cells 0-5 /hpf (0-5) 04/18/25 02:22 Amorphous Sediment Not Reportable 04/18/25 02:22 Urine Bacteria None seen /hpf (NONE) 04/18/25 02:22 Hyaline Casts 0-4 /lpf H 04/18/25 02:22 Serum Ketones Negative (Negative) 04/18/25 02:20 No radiology studies performed this visit Discharge Plan Discharge Patient Disposition: Home Clinical Impression: Acute hyperglycemia Condition: Stable Prescriptions: New insulin lispro 100 unit/mL insulin pen, half-unit See Rx Instructions .ROUTE .COMPLEX Qty: 15 0RF Rx Instructions: Use according to your published sliding scale No Action ibuprofen 200 mg capsule 200 mg PO Q6H PRN fluticasone propionate [Flonase Allergy Relief] 50 mcg/actuation spray,suspension 1 spray INTRANASAL DAILY albuterol sulfate [ProAir HFA] 90 mcg/actuation HFA aerosol inhaler 1 inh INHALATION QID Qty: 8.5 2RF Ocrevus 30 mg/mL solution 600 mg IVP .EVERY 6 MONTHS Qty: 20 12RF bupropion HCl 300 mg tablet extended release 24 hr See Rx Instructions .ROUTE .COMPLEX Qty: 90 3RF Dose Instruction: TAKE 1 TABLET BY MOUTH EVERY MORNING Rx Instructions: TAKE 1 TABLET BY MOUTH EVERY MORNING metformin 1,000 mg tablet 1,000 mg PO BID Qty: 180 3RF montelukast 10 mg tablet See Rx Instructions .ROUTE .COMPLEX Qty: 90 3RF Dose Instruction: TAKE 1 TABLET BY MOUTH EVERY DAY Rx Instructions: TAKE 1 TABLET BY MOUTH EVERY DAY venlafaxine 75 mg capsule,extended release 24hr See Rx Instructions .ROUTE .COMPLEX Qty: 90 3RF Dose Instruction: TAKE ONE CAPSULE BY MOUTH EVERY DAY Rx Instructions: TAKE ONE CAPSULE BY MOUTH EVERY DAY (DME) blood-glucose meter [OneTouch Ultra2 Meter] [facility] See Rx Instructions .Route Qty: 1 0RF Rx Instructions: Please issue new meter, to test 4 times a day. metoprolol ta-hydrochlorothiaz 50-25 mg tablet 1 tab PO DAILY 90 Days Qty: 90 3RF (DME) diabetic shoes with 3 inserts See Rx Instructions .Route .MEDSUPPLY Qty: 1 0RF Rx Instructions: [facility] [place] [place] with 3 inserts See Rx Instructions .Route .MEDSUPPLY Qty: 1 0RF Rx Instructions: [facility] [place] [place] 5514 custom insoles See Rx Instructions .Route .MEDSUPPLY Qty: 1 0RF Rx Instructions: [facility] gabapentin 300 mg capsule See Rx Instructions .ROUTE .COMPLEX Qty: 300 11RF Dose Instruction: take 1 capsule BY MOUTH THREE TIMES DAILY Rx Instructions: take 1 capsule BY MOUTH THREE TIMES DAILY OneTouch Ultra Test Strip See Rx Instructions .ROUTE .COMPLEX Qty: 150 3RF Dose Instruction: USE ONE STRIP TO TEST FOUR TIMES DAILY Rx Instructions: USE ONE STRIP TO TEST FOUR TIMES DAILY atorvastatin 20 mg tablet See Rx Instructions .ROUTE .COMPLEX Qty: 90 0RF Dose Instruction: TAKE 1 TABLET BY MOUTH EVERY DAY Rx Instructions: TAKE 1 TABLET BY MOUTH EVERY DAY tirzepatide 15 mg/0.5 mL pen injector 15 mg SUBCUT .weekly 90 Days Qty: 6 1RF Discharge Orders: Discharge ED (Routine); Ordered 04/18/25 Ordered By: Romario Hastings Referrals: Cara Hand DO [Primary Care Provider, Family Practice] - 1-3 days Patient Instructions: Diabetic Hyperglycemia (ED), Opioid Safety, Pain Management, Patient Portal & [place]cho Instructions Activity Restrictions/Additional Instructions: Use the sliding scale you were given to adjust insulin dosage while your sugar remains high. You should notice that your sugar normalizes over the next couple of days. Return for inability to control blood sugar, vomiting, mental status changes, any other concerning symptoms despite treatment. Print Language: Korean Coding Level of Care Code ED [employer] for Deshawn Cowan
[2025-04-18] MEDS: insulin regular-human 100 units/1 mL 15 UNIT IVP (02:19)
[2025-04-18 02:23] LABS: Hematocrit 42.2 % (37-53); Hemoglobin 15.10 g/dL (11.27-16.99); Mean Corpuscular HGB Conc 35.8 g/dL (30-55); Mean Corpuscular Hemoglobin 30.3 pg (27-33); Mean Corpuscular Volume 84.7 fl (82-101); Nucleated Red Blood Cells % 0 %; Platelet Count 257 10^3/cmm (157-399); Red Blood Count 4.98 10^6/uL (3.85-5.65); White Blood Count 7.97 10^3/uL (3.29-11.43)
[2025-04-18 02:24] VITALS: BP 141/80; PULSE 88; O2SAT 95
[2025-04-18 02:28] LABS: Glucose Urine UA 3+ (Normal); Nitrate Urine Negative (Negative)
[2025-04-18 02:30] LABS: Ketone (Acetest) Serum Negative (Negative)
[2025-04-18 02:30] LABS: Add Urine Microscopic? YES
[2025-04-18 02:32] LABS: Specific Gravity, Urine 1.032 (1.005-1.030)
[2025-04-18 02:42] VITALS: BP 141/80; PULSE 86; O2SAT 94
[2025-04-18 02:44] LABS: Alanine Aminotransferase 69 U/L (0-41); Albumin Level 4.4 g/dL (3.5-5.2); Alkaline Phosphatase 145 U/L (40-130); Anion Gap 15.0 (5-19); Aspartate Amino Transferase 27 U/L (0-40); Blood Urea Nitrogen 20 mg/dL (6-20); Calcium 9.8 mg/dL (8.5-10.5); Carbon Dioxide 26 mmol/L (22-29); Chloride 95 mmol/L (98-107); Globulin 2.6 g/dL (1.3-4.6); Glucose 514 mg/dL (65-115); Lipase 80 U/L (13-60); Magnesium 1.8 mg/dL (1.7-2.3); Osmolality Calculated 300 mOsm/kg (285-295); Potassium 4.0 mmol/L (3.5-5.1); Sodium 132 mmol/L (136-145); Total Protein 7.0 g/dL (6.6-8.7)
[2025-04-18 03:12] VITALS: BP 141/80; PULSE 82; O2SAT 95
[2025-04-18 05:00] VITALS: BP 122/77; PULSE 78; O2SAT 96
== END 2025-04-18 05:01 | disposition home or self-care (01) ==
PROVIDERS: Emergency Provider Emergency Medicine; PCP Family Medicine
DX: E11.65 Type 2 diabetes mellitus with hyperglycemia (principal); Z79.84 Long term (current) use of oral hypoglycemic drugs; E78.5 Hyperlipidemia, unspecified
CPT/HCPCS: 36416; 80053; 81001; 82009; 82962; 83690; 83735; 85025; 96361; 96374; 99284; J1815; J7030